=== PATIENT | male | born 1975 ===

== ENCOUNTER 2016-09-03 23:39 | Emergency (ER) | payer MEDICAID, OTHER ==
[2016-09-03 23:39] VITALS: BMI 31.3
[2016-09-04 00:06] VITALS: BP 110/72; PULSE 90; RESP 18; TEMP 98.1; O2SAT 96
--- NOTE | 2016-09-04 00:30 | C.PDOC ---
History Of Present Illness 41 year old male who presents to the ER requesting a refill of his pain medication. Patient states he has chronic foot problems and is s/p surgery 3 weeks ago and had a "implant" to his left foot. Patient is requesting "strong pain meds"; denies weakness or numbness or the left foot. Time Seen by Provider: 09/04/16 00:06 Chief Complaint (Nursing): Lower Extremity Problem/Injury History Per: Patient History/Exam Limitations: no limitations Onset/Duration Of Symptoms: Hrs Current Symptoms Are (Timing): Still Present Recent travel outside of the [place]: No Past Medical History Reviewed: Historical Data, Nursing Documentation, Vital Signs Vital Signs: Last Vital Signs Temp 98.1 F 09/04/16 00:00 Pulse 90 09/04/16 00:00 Resp 18 09/04/16 00:00 BP 110/72 09/04/16 00:00 Pulse Ox 96 09/04/16 02:55 - Medical History PMH: Anxiety, Arthritis, Asthma, Back Problems, Bipolar Disorder, CHF, Dementia , Depression, Fractures, HIV, HTN, Osteoporosis, Schizophrenia, Seizures ( EPILEPSY), Chronic Pain (Back/Knee/Ankle) Surgical History: Appendectomy - [facility] Procedures EXERCISE TREATMENT OF MUSCULOSK WHOLE USING ASSIST EQUIPMENT (08/19/16) GAIT TRAINING/AMBULAT TREATMENT USING ASSIST EQUIPMENT (08/19/16) HOME MANAGEMENT TREATMENT USING ASSIST EQUIPMENT (08/19/16) INJECT/INFUSE NEC (11/13/14) INTRODUCE LOCAL ANESTH IN PERIPH NRV, PLEXI, PERC (08/15/16) PSYCHIA INTERV/EVAL NEC (01/19/13) REPLACE OF L ANKLE JT WITH SYNTH SUB, CEMENT, OPEN APPROACH (08/15/16) SPINAL TAP (02/16/13) Family History: States: Unknown Family Hx - Social History Hx Tobacco Use: No Hx Alcohol Use: No Hx Substance Use: No - Immunization History Hx Tetanus Toxoid Vaccination: No Hx Influenza Vaccination: No Hx Pneumococcal Vaccination: No Review Of Systems Musculoskeletal: Positive for: Foot Pain (Left) Neurological: Negative for: Weakness, Numbness Physical Exam - Physical Exam Appears: Non-toxic, No Acute Distress, Other (appears sleepy, but easily arousable) Skin: Normal Color, Warm, Dry Head: Atraumatic, Normacephalic Eye(s): bilateral: Normal Inspection, PERRL Oral Mucosa: Moist Extremity: Capillary Refill (Good), No Deformity, No Swelling, Other (Left lower extremity in a splint with toes visualized.) Neurological/Psych: Oriented x3, Normal Speech, Normal Cognition ED Course And Treatment O2 Sat by Pulse Oximetry: 96 (Room air) Pulse Ox Interpretation: Normal Progress Note: [place], patient was found to have had a refill of hydromorphone and oxycodone on 08/26. Patient told he cannot have narcotic pain medication, he continues to ask for pain medication and is refusing motrin and tylenol. 1 tablet of percocet administered. Patient is refusing crutches and is demanding an ambulance. Discussed with clinical nursing coordinator who will request logisticare to give him a ride home. Reassessment Condition: Improved Disposition - Disposition Referrals: PODIATRY, scheduled [Other] Disposition: HOME/ ROUTINE Disposition Time: 01:20 Condition: STABLE Additional Instructions: Please follow up with Diet Consultant tomorrow Return to ER if worse Instructions: Chronic Pain (ED) Print Language: ICELANDIC - Clinical Impression Clinical Impression: Chronic pain - Scribe Statement The provider has reviewed the documentation as recorded by the Scribe Joseph Antonio All medical record entries made by the Scribe were at my direction and personally dictated by me. I have reviewed the chart and agree that the record accurately reflects my personal performance of the history, physical exam, medical decision making, and the department course for this patient. I have also personally directed, reviewed, and agree with the discharge instructions and disposition.
[2016-09-04] MEDS ORDERED: Oxycodone/Acetaminophen 5/325 mg Tab PO STA (00:37)
[2016-09-04] MEDS ORDERED: Oxycodone/Acetaminophen 5/325 mg Tab ONE (00:40)
== END 2016-09-04 03:03 | disposition home or self-care (01) ==
LOC: C.ER 23:39
DX: G89.29 Other chronic pain (principal)

== ENCOUNTER 2016-09-24 15:09 | Emergency (ER) | payer MEDICAID ==
[2016-09-24 15:09] VITALS: BMI 31.3
[2016-09-24 15:56] VITALS: TEMP 98.6
[2016-09-24 16:36] LABS: BASO % 0.6 % (0.0-2.0); EOS # 0.2 K/uL (0.0-0.7); EOS % 3.1 % (0.0-4.0); HEMATOCRIT 40.9 % (35.0-51.0); LYMPH # 1.9 K/uL (1.0-4.3); LYMPH % 26.8 % (20.0-40.0); MEAN CELL VOLUME 85.5 fL (80.0-94.0); MEAN CORPUSCULAR HEMOGLOBIN 28.5 pg (27.0-31.0); MEAN CORPUSCULAR HGB CONC 33.4 g/dL (33.0-37.0); MEAN PLATELET VOLUME 8.3 fL (7.2-11.7); MONO # 0.4 K/uL (0.0-0.8); RED CELL DISTRIBUTION WIDTH 12.5 % (11.5-14.5); WHITE BLOOD COUNT 7.1 K/uL (4.8-10.8)
--- NOTE | 2016-09-24 16:42 | C.PDOC ---
History Of Present Illness 41-year-old male, PMHx includes chronic back pain, seizure disorder (on Keppra) , bipolar disorder and leg pain s/p recent left ankle surgery, presents to the emergency department with complaints of seizure. As per EMS, patient had a witnessed twenty-minute tonic-clonic seizure at home, just prior to arrival. Patient is awake and alert in ED, mildly somnolent. He states that he takes Keppra daily and claims to be compliant with the medication. Patient also had a fall during seizure, and is complaining of pain to left arm and back. Time Seen by Provider: 09/24/16 15:53 Chief Complaint (Nursing): Seizure History Per: Patient History/Exam Limitations: no limitations Past Medical History Reviewed: Historical Data, Nursing Documentation, Vital Signs Vital Signs: Last Vital Signs Temp 98.6 F 09/24/16 15:46 Pulse 78 09/24/16 19:05 Resp 18 09/24/16 19:05 BP 112/58 L 09/24/16 19:05 Pulse Ox 95 09/24/16 19:21 - Medical History PMH: Anxiety, Arthritis, Asthma, Back Problems, Bipolar Disorder, CHF, Dementia , Depression, Fractures, HIV, HTN, Osteoporosis, Schizophrenia, Seizures ( EPILEPSY), Chronic Pain (Back/Knee/Ankle) Surgical History: Appendectomy - [facility] Procedures EXERCISE TREATMENT OF MUSCULOSK WHOLE USING ASSIST EQUIPMENT (08/19/16) GAIT TRAINING/AMBULAT TREATMENT USING ASSIST EQUIPMENT (08/19/16) HOME MANAGEMENT TREATMENT USING ASSIST EQUIPMENT (08/19/16) INJECT/INFUSE NEC (11/13/14) INTRODUCE LOCAL ANESTH IN PERIPH NRV, PLEXI, PERC (08/15/16) PSYCHIA INTERV/EVAL NEC (01/19/13) REPLACE OF L ANKLE JT WITH SYNTH SUB, CEMENT, OPEN APPROACH (08/15/16) SPINAL TAP (02/16/13) Family History: States: No Known Family Hx - Social History Hx Tobacco Use: No Hx Alcohol Use: No Hx Substance Use: No - Immunization History Hx Tetanus Toxoid Vaccination: No Hx Influenza Vaccination: No Hx Pneumococcal Vaccination: No Review Of Systems Constitutional: Negative for: Fever Cardiovascular: Negative for: Chest Pain Respiratory: Negative for: Shortness of Breath Gastrointestinal: Negative for: Vomiting Musculoskeletal: Positive for: Back Pain, Leg Pain. Negative for: Neck Pain Neurological: Positive for: Seizures. Negative for: Weakness, Numbness, Incoordination, Change in Speech, Altered Mental Status Physical Exam - Physical Exam Appears: Non-toxic, No Acute Distress, Other (somnolent) Skin: Warm, Dry, No Rash Head: Atraumatic, Normacephalic Eye(s): bilateral: Normal Inspection Nose: Normal Oral Mucosa: Moist Neck: Normal ROM Chest: Symmetrical Cardiovascular: Rhythm Regular, No Murmur Respiratory: Normal Breath Sounds, No Accessory Muscle Use Gastrointestinal/Abdominal: Soft, No Tenderness Extremity: Other (left leg in short leg splint ) Extremity: Left: Painful To Bear Weight, Unable To Bear Weight Pulses: Left Carotid: Normal, Right Carotid: Normal Neurological/Psych: Oriented x3, No Normal Speech (slurred), Normal Motor, Normal Sensation, Other (follows commands. No focal deficit.) ED Course And Treatment - Laboratory Results Result Diagrams: 09/24/16 16:30 09/24/16 16:30 Lab Interpretation: Normal ECG: Interpreted By Me ECG Rhythm: Sinus Rhythm, ST/T Changes (nonspecific T wave changes) O2 Sat by Pulse Oximetry: 95 Pulse Ox Interpretation: Normal Reevaluation Time: 19:18 Reassessment Condition: Improved (Patient remains awake and alert. Complaining of pain but is well known to his physicians. Surgeons evaluated in ED) Disposition Counseled Patient/Family Regarding: Studies Performed, Diagnosis, Need For Followup - Disposition Referrals: Gen León DPM [Staff Provider] - Disposition: HOME/ ROUTINE Disposition Time: 19:23 Condition: STABLE Instructions: Recurrent Seizures in Adults (ED) Forms: [facility] (Slovenian) - Clinical Impression Clinical Impression: Seizure, Chronic pain - Scribe Statement The provider has reviewed the documentation as recorded by the Scribe (Raven Waite) All medical record entries made by the Scribe were at my direction and personally dictated by me. I have reviewed the chart and agree that the record accurately reflects my personal performance of the history, physical exam, medical decision making, and the department course for this patient. I have also personally directed, reviewed, and agree with the discharge instructions and disposition.
[2016-09-24 17:03] LABS: CHLORIDE 96 mmol/L (98-107); SODIUM 140 mmol/L (132-148)
[2016-09-24 17:04] LABS: POTASSIUM 4.4 mmol/L (3.6-5.2)
[2016-09-24 17:06] LABS: ALB/GLOB RATIO 1.3 (1.0-2.1); ALKALINE PHOSPHATASE 122 U/L (38-126); ALT/SGPT 57 U/L (21-72); AST/SGOT 65 U/L (17-59); BILIRUBIN,TOTAL 0.7 mg/dL (0.2-1.3); BLOOD UREA NITROGEN 13 mg/dL (9-20); CARBON DIOXIDE 28 mmol/L (22-30); GFR AFRICAN-AMERICAN > 60; GLUCOSE,RANDOM 95 mg/dL (75-110); TOTAL PROTEIN 7.5 g/dL (6.3-8.3)
[2016-09-24 17:07] LABS: ALCOHOL SERUM < 10 mg/dl (0-10); CALCIUM 8.9 mg/dl (8.6-10.4)
[2016-09-24 17:49] LABS: RBC URINE < 1 /hpf (0-3); URINE BACTERIA RARE (<OCC); URINE BILIRUBIN NEGATIVE (NEGATIVE); URINE BLOOD NEGATIVE (NEGATIVE); URINE COLOR Yellow (YELLOW); URINE GLUCOSE (UA) NORMAL (Normal); URINE KETONE NEGATIVE (NEGATIVE); URINE LEUKOCYTE ESTERASE NEG Leu/uL (Negative); URINE PROTEIN NEGATIVE (NEGATIVE); URINE UROBILINOGEN NORMAL mg/dL (0.2-1.0); WBC URINE < 1 /hpf (0-5)
[2016-09-24 19:05] VITALS: BP 112/58; PULSE 78; RESP 18
[2016-09-24 19:14] VITALS: O2SAT 95
--- NOTE | 2016-10-05 09:16 | CARD ---
APPROVED REPORT EKG Measurement Heart [id number] <Conclusion> Normal sinus rhythm Nonspecific T wave abnormality Prolonged QT Abnormal ECG
== END 2016-09-24 19:30 | disposition home or self-care (01) ==
LOC: C.ER 15:09
DX: G40.909 Epilepsy, unspecified, not intractable, without status epilepticus (principal); G89.29 Other chronic pain

== ENCOUNTER 2017-11-01 13:35 | Emergency (ER) | payer MEDICAID, MEDICARE ==
[2017-11-01 13:35] VITALS: BMI 31.3
[2017-11-01] MEDS ORDERED: oxyCODONE 20 mg ER Tab (oxyCONTIN) PO STA (13:52)
--- NOTE | 2017-11-01 13:58 | C.PDOC ---
History Of Present Illness 42 year old male with a history of left ankle arthritis, choric pain, s/p left ankle surgery 8 months ago, is brought into the emergency department by ambulance for evaluation of left ankle pain which has worsened over the past three days. Patient states that he has been taking Oxycodone for the pain but ran out 6 days ago. Otherwise, pt denies recent trauma or injuries, denies weakness, sensory or vascular deficits to Left foot, denies any other active complaints. Noted short walking boot to Left foot/ankle. FYI: ED records review, pt seen at [facility] . [place] [place], multiple Rx Oxycodone, Alprazolam, Zolpidem for past year. Last Rx : Oxycodone 30mg#90 on 09/06/17, 10/06/17, Alprazolam 2mg#90 on 09/27/17, 10/24/17, Zolpidem 10mg#30 on 09/27/17, 10/24/17, Lyrica 100mg#60 on 10/04/17 Time Seen by Provider: 11/01/17 13:40 Chief Complaint (Nursing): Lower Extremity Problem/Injury History Per: Patient History/Exam Limitations: no limitations Onset/Duration Of Symptoms: Days (3) Current Symptoms Are (Timing): Worse Past Medical History Reviewed: Historical Data, Nursing Documentation, Vital Signs Vital Signs: Last Vital Signs Temp 98.9 F 11/01/17 15:42 Pulse 89 11/01/17 15:42 Resp 20 11/01/17 15:42 BP 124/77 11/01/17 15:42 Pulse Ox 95 11/01/17 15:42 - Medical History PMH: Anxiety, Arthritis, Asthma, Back Problems, Bipolar Disorder, CHF, Dementia , Depression, Fractures (right leg), HIV, HTN, Osteoporosis, Schizophrenia, Seizures, Chronic Pain (Back/Knee/Ankle) Denies: Chronic Kidney Disease Surgical History: Appendectomy - [facility] Procedures EXERCISE TREATMENT OF MUSCULOSK WHOLE USING ASSIST EQUIPMENT (08/19/16) GAIT TRAINING/AMBULAT TREATMENT USING ASSIST EQUIPMENT (08/19/16) HOME MANAGEMENT TREATMENT USING ASSIST EQUIPMENT (08/19/16) INJECT/INFUSE NEC (11/13/14) INTRODUCE LOCAL ANESTH IN PERIPH NRV, PLEXI, PERC (08/15/16) PSYCHIA INTERV/EVAL NEC (01/19/13) REPLACE OF L ANKLE JT WITH SYNTH SUB, CEMENT, OPEN APPROACH (08/15/16) SPINAL TAP (02/16/13) Family History: States: No Known Family Hx - Social History Hx Tobacco Use: No Hx Alcohol Use: No Hx Substance Use: No - Immunization History Hx Tetanus Toxoid Vaccination: No Hx Influenza Vaccination: No Hx Pneumococcal Vaccination: No Review Of Systems Except As Marked, All Systems Reviewed And Found Negative. Constitutional: Negative for: Fever, Chills ENT: Negative for: Throat Pain Cardiovascular: Negative for: Chest Pain, Palpitations Respiratory: Negative for: Cough, Shortness of Breath Gastrointestinal: Negative for: Vomiting, Abdominal Pain, Diarrhea Musculoskeletal: Positive for: Foot Pain (left ankle) Neurological: Negative for: Weakness, Numbness, Altered Mental Status, Headache , Dizziness Physical Exam - Physical Exam Appears: Non-toxic, Other (in pain) Skin: Warm, Dry, No Rash Head: Normacephalic Eye(s): bilateral: PERRL Throat: No Drooling Neck: Supple Chest: Symmetrical Cardiovascular: Rhythm Regular, No Murmur, No JVD Respiratory: No Decreased Breath Sounds, No Accessory Muscle Use, No Stridor, No Wheezing Gastrointestinal/Abdominal: Soft, No Tenderness Extremity: Normal ROM (Left ankle and foot), Tenderness (mild tenderness over anterior aspect of the left ankle. Well healled scar noted over anterior aspect Left ankle. NO ankle edema or erythema, no proximal streaking.), No Pedal Edema , Calf Tenderness (Left), Capillary Refill (< 2 seconds), No Swelling Extremity: Bilateral: Atraumatic, Normal Color And Temperature Pulses: Left Dorsalis Pedis: Normal, Right Dorsalis Pedis: Normal DTR: Ankle (L): 2+ Neurological/Psych: Oriented x3, Normal Speech, Normal Cognition, Normal Motor, Normal Sensation, Normal Reflexes ED Course And Treatment O2 Sat by Pulse Oximetry: 96 (RA) Pulse Ox Interpretation: Normal Progress Note: Plan: Oxycodone 30mg PO. On re-eval, pt is afebrile, hemodynamicaly stable. NOn-toxic. Ambulatory in ED. Left ankle: short walking boot re-applied. No evidence of cellulitis, no edema, FAROM, no neurovascular deficits. Pt has hx of left ankle OA with chronic pain, on opioid r/o rx drug abuse. Pt advised and ref. to f/u with PMD, Podiatry, PM in 1-2 days for re-eavl. return to Ed if any new changes. Disposition Counseled Patient/Family Regarding: Diagnosis, Need For Followup - Disposition Referrals: Berna Lugo MD [Non-Staff] - Gen León DPM [Staff Provider] - Disposition: HOME/ ROUTINE Disposition Time: 14:16 Condition: STABLE Additional Instructions: Follow up with PMD, Podiatry and pain management in 2-3 days for re-evaluation and further pain control. return if any new changes. Instructions: Osteoarthritis (DC), Drug Abuse and Drug Addiction (DC) Forms: [employer] (Hungarian) - Clinical Impression Clinical Impression: Chronic pain of left ankle, Drug abuse - PA / LIQUID CENTER ASSEMBLER / Resident Statement MD/DO has reviewed & agrees with the documentation as recorded. - Scribe Statement The provider has reviewed the documentation as recorded by the Scribe (Kehinde Marshall) All medical record entries made by the Scribe were at my direction and personally dictated by me. I have reviewed the chart and agree that the record accurately reflects my personal performance of the history, physical exam, medical decision making, and the department course for this patient. I have also personally directed, reviewed, and agree with the discharge instructions and disposition.
[2017-11-01] MEDS ORDERED: oxyCODONE 10 mg ER Tab (oxyCONTIN) PO STA (14:33)
[2017-11-01 15:48] VITALS: BP 124/77; PULSE 89; RESP 20; TEMP 98.9
[2017-11-01 16:58] VITALS: O2SAT 96
== END 2017-11-01 15:48 | disposition home or self-care (01) ==
LOC: C.ER 13:35
DX: G89.29 Other chronic pain (principal); M25.572 Pain in left ankle and joints of left foot; F19.10 Other psychoactive substance abuse, uncomplicated

== ENCOUNTER 2018-01-01 15:29 | Emergency (ER) | payer MEDICAID ==
[2018-01-01 15:29] VITALS: BMI 31.3
[2018-01-01 15:38] VITALS: BP 143/88; PULSE 96; RESP 18; TEMP 98.6; O2SAT 97
--- NOTE | 2018-01-01 16:34 | C.PDOC ---
History Of Present Illness 42 year old male presents to ED complaining of whole body pain and aches. Patient states he ran out of his oxycodone prescription 5 days ago. Patient reports he is usually seen by Dr. James for chronic pain issues. Dr. James prescribed him alprazolam 2 mg x90 tablets and oxycodone 30 mg x90 tablets. Patient claims he is pending refills next week. Patient was seen on 12/01/17 at [facility]. per the note, given 4 tablets of 30 mg oxycodone, but per [place] [employer] he received 90 tablets as prescribed by the ER physician environmental services assistant. Patient claims this is an error. Patient was prescribed narcan nasal spray during his last ER visit. Denies fever, chills, cough, shortness of breath, chest pain, nausea, vomiting, diarrhea, weakness, numbness. Time Seen by Provider: 01/01/18 16:20 Chief Complaint (Nursing): Medical Clearance History Per: Patient History/Exam Limitations: clinical condition Onset/Duration Of Symptoms: Days Current Symptoms Are (Timing): Still Present Past Medical History Reviewed: Historical Data, Nursing Documentation, Vital Signs Vital Signs: Last Vital Signs Temp 98.6 F 01/01/18 15:37 Pulse 96 H 01/01/18 15:37 Resp 18 01/01/18 15:37 BP 143/88 01/01/18 15:37 Pulse Ox 97 01/01/18 15:37 - Medical History PMH: Anxiety, Arthritis, Asthma, Back Problems, Bipolar Disorder, CHF, Dementia, Depression, Fractures (right leg), HIV, HTN, Osteoporosis, Schizophrenia, Seizures, Chronic Pain (Back/Knee/Ankle) Denies: Chronic Kidney Disease Surgical History: Appendectomy - [facility] Procedures EXERCISE TREATMENT OF MUSCULOSK WHOLE USING ASSIST EQUIPMENT (08/19/16) GAIT TRAINING/AMBULAT TREATMENT USING ASSIST EQUIPMENT (08/19/16) HOME MANAGEMENT TREATMENT USING ASSIST EQUIPMENT (08/19/16) INJECT/INFUSE NEC (11/13/14) INTRODUCE LOCAL ANESTH IN PERIPH NRV, PLEXI, PERC (08/15/16) PSYCHIA INTERV/EVAL NEC (01/19/13) REPLACE OF L ANKLE JT WITH SYNTH SUB, CEMENT, OPEN APPROACH (08/15/16) SPINAL TAP (02/16/13) Family History: States: No Known Family Hx - Social History Hx Tobacco Use: No Hx Alcohol Use: No Hx Substance Use: No - Immunization History Hx Tetanus Toxoid Vaccination: No Hx Influenza Vaccination: No Hx Pneumococcal Vaccination: No Review Of Systems Except As Marked, All Systems Reviewed And Found Negative. Constitutional: Negative for: Fever, Chills Cardiovascular: Negative for: Chest Pain Respiratory: Negative for: Cough, Shortness of Breath Gastrointestinal: Negative for: Nausea, Vomiting, Diarrhea Musculoskeletal: Positive for: Other (Generalized body pain and aches.) Neurological: Negative for: Weakness, Numbness Physical Exam - Physical Exam Appears: Non-toxic, No Acute Distress, Other (Obese, snoring in sleep, and difficult to arouse on inital event. Patient was partially arousable, bizzare, and argumentative with staff.) Skin: Warm, Dry Head: Atraumatic, Normacephalic Eye(s): bilateral: PERRL, EOMI Oral Mucosa: Moist Neck: Supple Chest: Symmetrical, No Deformity Cardiovascular: Rhythm Regular, No Murmur Respiratory: Normal Breath Sounds, No Rales, No Rhonchi, No Wheezing Gastrointestinal/Abdominal: Soft, No Tenderness Neurological/Psych: Oriented x3 ED Course And Treatment O2 Sat by Pulse Oximetry: 97 (RA) Pulse Ox Interpretation: Normal Medical Decision Making Medical Decision Making: drug seeking behavior pt asleep and difficult to arouse on eval claims to be in severe pain but cannot localize L ankle surgery 9 months ago Seen by Chronic Pain, last refilled Oxy 30 x 90 tabs 12/02/17, unclear why lost to f/u with Pain Mgmt Alprazolam 2 mg x 90 tabs last filled 12/21/17 AGAIN explained pt may not have chronic pain meds refilled in ED when under Pain Mgmt Contract Clear lungs and loudly argumentative/bizarre in ED argues against resp distress though [facility] 12/02 and written an Rx [facility] (4) tabs [facility]xy 30[facility] N[facility]ETY (90) tabs Highly suspect drug diversion Extensive psych history makes explaining and pt insight difficult. Disposition Doctor Will See Patient In The: Office Counseled Patient/Family Regarding: Studies Performed, Diagnosis - Disposition Referrals: [facility] [Outside] [facility] [Outside] [facility] [Outside] [facility] [Outside] Bernabe Hayes MD [Staff Provider] - Wes Glass MD [Staff Provider] - Berna Lugo MD [Non-Staff] - Disposition: HOME/ ROUTINE Disposition Time: 16:34 Condition: GOOD Additional Instructions: continue to follow-up with your Chronic Pain Specialist the ED may NOT refill Chronic Pain medicines. You may call to seek a new Chronic Pain early childhood specialist if you like: Call to make appt with Dr. Mcfarland or Dr. Hayes Instructions: Drug Abuse and Drug Addiction (DC), Prescription Drug Abuse (DC), Prescription Drug Misuse, Opioid Use Disorder, Weaning Patients Off of Pain Drugs Forms: [employer] (Guyanese) - Clinical Impression Clinical Impression: Narcotic addiction, Drug-seeking behavior - Scribe Statement The provider has reviewed the documentation as recorded by the Scribe Augusto [employer]ile[employer] Provider Attestation: All medical record entries made by the Scribe were at my direction and personally dictated by me. I have reviewed the chart and agree that the record accurately reflects my personal performance of the history, physical exam, medical decision making, and the department course for this patient. I have also personally directed, reviewed, and agree with the discharge instructions and disposition.
== END 2018-01-01 17:04 | disposition home or self-care (01) ==
LOC: C.ER 15:29
DX: F19.20 Other psychoactive substance dependence, uncomplicated (principal); Z76.5 Malingerer [conscious simulation]

== ENCOUNTER 2018-05-10 16:24 | Emergency (ER) | payer MEDICAID | END 2018-05-10 19:22 | disposition home or self-care (01) | LOC: C.ER 16:24 ==

== ENCOUNTER 2018-05-11 17:29 | Outpatient (CLI) | payer MEDICAID | END 2018-05-11 17:30 | disposition home or self-care (01) | LOC: C.SLEEP 17:30 ==

== ENCOUNTER 2018-06-10 15:29 | Emergency (ER) | payer MEDICAID ==
[2018-06-10 15:29] VITALS: BMI 43.6
--- NOTE | 2018-06-10 18:07 | C.PDOC ---
History Of Present Illness 42-year-old male, whose PMHx includes chronic lower back pain, sz ds, is brought to the ED by ambulance for evaluation of left lower back pain radiating to the left leg. AT present time, pt appears somnolent, poor historian, slurred speech. Patient admits he took Oxycontin and Xanax at home for pain today and asking for more pain medication. Patient denies recent falls/trauma, chest pain, shortness of breath, urinary/bowel incontinence, extremity numbness/weakness, denies recent sz. Time Seen by Provider: 06/10/18 15:35 Chief Complaint (Nursing): Medical Clearance History Per: Patient, EMS History/Exam Limitations: no limitations Onset/Duration Of Symptoms: Hrs Current Symptoms Are (Timing): Still Present Additional History Per: Patient Past Medical History Reviewed: Historical Data, Nursing Documentation, Vital Signs Vital Signs: Last Vital Signs Temp 98.6 F 06/10/18 15:32 Pulse 98 H 06/10/18 15:32 Resp 18 06/10/18 15:32 BP 144/90 06/10/18 15:32 Pulse Ox 100 06/10/18 15:32 - Medical History PMH: Anxiety, Arthritis, Asthma, Back Problems, Bipolar Disorder, CHF, Dementia, Depression, Fractures (right leg), HIV, HTN, Osteoporosis, Schizophrenia, Seizures, Chronic Pain (Back/Knee/Ankle) Denies: Chronic Kidney Disease Surgical History: Appendectomy - [facility] Procedures EXERCISE TREATMENT OF MUSCULOSK WHOLE USING ASSIST EQUIPMENT (08/19/16) GAIT TRAINING/AMBULAT TREATMENT USING ASSIST EQUIPMENT (08/19/16) HOME MANAGEMENT TREATMENT USING ASSIST EQUIPMENT (08/19/16) INJECT/INFUSE NEC (11/13/14) INTRODUCE LOCAL ANESTH IN PERIPH NRV, PLEXI, PERC (08/15/16) PSYCHIA INTERV/EVAL NEC (01/19/13) REPLACE OF L ANKLE JT WITH SYNTH SUB, CEMENT, OPEN APPROACH (08/15/16) SPINAL TAP (02/16/13) Family History: States: Unknown Family Hx - Social History Hx Tobacco Use: No Hx Alcohol Use: No Hx Substance Use: No - Immunization History Hx Tetanus Toxoid Vaccination: No Hx Influenza Vaccination: No Hx Pneumococcal Vaccination: No Review Of Systems Cardiovascular: Negative for: Chest Pain Respiratory: Negative for: Shortness of Breath Genitourinary: Negative for: Incontinence Musculoskeletal: Positive for: Back Pain (left-sided, lower) Skin: Negative for: Rash, Lesions, Jaundice, Bruising Neurological: Negative for: Weakness, Numbness Physical Exam - Physical Exam Appears: Well, Non-toxic, No Acute Distress, Other (somnolent) Skin: Normal Color, Warm, No Rash Head: Atraumatic, Normacephalic Eye(s): bilateral: PERRL Oral Mucosa: Moist Neck: No Trachea Midline, No Midline Cervical Tenderness, No Paracervical Tenderness, Supple Chest: Symmetrical, No Deformity, No Tenderness Cardiovascular: Rhythm Regular, No Murmur Respiratory: No Accessory Muscle Use, No Rales, No Rhonchi, No Stridor, No Wheezing Gastrointestinal/Abdominal: Soft, No Tenderness, No Distention, No Guarding Extremity: Normal ROM, No Pedal Edema, No Deformity, No Swelling Neurological/Psych: Normal Motor, Normal Sensation, Normal Reflexes, Other (somnolent, but answering questions and arousable to touch and verbal stimuli ) ED Course And Treatment O2 Sat by Pulse Oximetry: 100 (on RA) Pulse Ox Interpretation: Normal Progress Note: Case discussed with pt's pain PMD , advised " not to give any more pain medictaion". case discussed with DR. Guo and OBS recommend. Pt was OBS in ED for 5 hrs. on re-eval, pt is more awake now. Hx w as taken through translation again. Pt c/o chr. lower back pain, denies recent traum aor injury, denies CP, SOB, palpitation, N/V, asking " need pain medication now". Pt is ambulatory in ED with stable gait. AAO#3. Advised and stable for discharge with outpt f/u with PM. Disposition Counseled Patient/Family Regarding: Diagnosis, Need For Followup - Disposition Referrals: Berna Lugo MD [Non-Staff] - Disposition: HOME/ ROUTINE Disposition Time: 19:57 Condition: STABLE Instructions: Low Back Pain (DC), Drug Abuse and Drug Addiction (DC) Forms: [employer] (Ecuadorean) - Clinical Impression Clinical Impression: Opioid intoxication, Chronic back pain - PA / PACKING ATTENDANT / Resident Statement MD/DO has reviewed & agrees with the documentation as recorded. - Scribe Statement The provider has reviewed the documentation as recorded by the Scribe (Ina Delgado) All medical record entries made by the Scribe were at my direction and personally dictated by me. I have reviewed the chart and agree that the record accurately reflects my personal performance of the history, physical exam, medical decision making, and the department course for this patient. I have also personally directed, reviewed, and agree with the discharge instructions and disposition.
[2018-06-10 18:50] VITALS: BP 133/89; PULSE 102; RESP 16; TEMP 98.8
[2018-06-10] MEDS ORDERED: Lidocaine 5% Patch TD STA (19:55)
[2018-06-10] MEDS ORDERED: Lidocaine 5% Patch TD ONE (20:00)
[2018-06-10 20:04] VITALS: O2SAT 100
== END 2018-06-10 20:23 | disposition home or self-care (01) ==
LOC: C.ER 15:29
DX: G89.29 Other chronic pain (principal); M54.5 Low back pain; F11.129 Opioid abuse with intoxication, unspecified